=== PATIENT | female | born 1950 | race Caucasian/White ===

== ENCOUNTER 2017-08-19 11:53 | Inpatient (IN) | payer MEDICARE, MEDICAID ==
[~2017-08-19] VITALS: Ht 152.4 cm; Wt 59.6 kg
[~2017-08-19 11:53] MED LIST: CILOXAN; INSULIN; PREDNISOLONE; [UNRECOGNIZED DRUG - OTHER]
[2017-08-19] MEDS ORDERED: KETOROLAC 30MG/ML VIAL IV STA (12:20)
[2017-08-19] MEDS ORDERED: ACETAMINOPHEN 325MG TABLET PO STA (12:20)
[2017-08-19] MEDS ORDERED: MORPHINE SULFATE 4 MG/ML CPJ (NOT FOR IM USE) IV STA (12:20)
[2017-08-19] MEDS ORDERED: ONDANSETRON HCL 4MG/2ML VIAL IV STA (12:20)
[2017-08-19] MEDS ORDERED: SODIUM CHLORIDE 0.9% 1,000 ML IV ONE (12:20)
[2017-08-19] MEDS ORDERED: IPRATROPIUM/ALBUTEROL 0.5-3(2.5)MG/3ML NEB HHN ONE (12:30)
[2017-08-19] MEDS ORDERED: LEVOFLOXACIN 750MG PREMIX 150 ML IV ONE (12:30)
[2017-08-19] MEDS ORDERED: METHYLPREDNISOLONE SOD SUCC 125 MG/2 ML VIAL IV ONE (12:30)
[2017-08-19 13:15] LABS: BASOPHILS % 0.5 % (0.0-2.0); EOSINOPHILS % 0.1 % (0.0-5.0); HEMATOCRIT. 38.1 % (36.0-48.0); HEMOGLOBIN. 12.9 g/dL (12.0-16.0); LYMPHOCYTES % 8.9 % (20.0-50.0); MEAN CORPUSCULAR VOLUME 82.7 fL (81.0-99.0); MEAN PLATELET VOLUME 8.3 fl (7.4-10.4); MONOCYTES % 6.5 % (2.0-8.0); PLATELET 434 x1000/uL (130-400); RED CELL DISTRIBUTION WIDTH 14.6 % (11.6-14.6)
[2017-08-19 13:17] LABS: CHLORIDE 104 mEq/L (98-107)
[2017-08-19 13:37] LABS: PROTHROMBIN TIME 10.7 sec (9.4-11.6)
[2017-08-19 15:47] LABS: CLARITY URINE CLEAR (CLEAR); COLOR URINE YELLOW (YELLOW); KETONES URINE 3+ (NEGATIVE); LEUKOCYTE ESTERASE URINE NEGATIVE (NEGATIVE); NITRITE URINE NEGATIVE (NEGATIVE); OCCULT BLOOD URINE NEGATIVE (NEGATIVE); PH URINE 6.5 (4.5-8.0); PROTEIN URINE NEGATIVE (NEGATIVE); SPECIFIC GRAVITY URINE 1.017 (1.005-1.030); UROBILINOGEN URINE 0.2 E.U./dL (0.2-1.0)
[2017-08-19] MEDS ORDERED: MORPHINE SULFATE 4 MG/ML CPJ (NOT FOR IM USE) IV ONE (16:45)
[2017-08-19] MEDS ORDERED: ONDANSETRON HCL 4MG/2ML VIAL IV ONE (16:45)
[2017-08-19] MEDS ORDERED: BECL10.62 IH (19:48)
[2017-08-19] MEDS ORDERED: LANTUSUD SUBCUT ×2 (19:48)
[2017-08-19] MEDS ORDERED: ALBU18HF2 IH (19:48)
[2017-08-19 19:57] VITALS: BP 108/41
[2017-08-19 20:00] VITALS: BP 108/41
[2017-08-19] MEDS ORDERED: PNEUMOCOCCAL 23-VAL P-SAC VAC 0.5 ML IM ONE (20:30)
[2017-08-19] MEDS ORDERED: CLONIDINE 0.1MG TABLET PO PRN (20:45)
[2017-08-19] MEDS ORDERED: ONDANSETRON HCL 4MG/2ML VIAL IV PRN (20:45)
[2017-08-19] MEDS ORDERED: DEXTROSE 50% WATER 50ML SYRINGE IV PRN (21:00)
[2017-08-19] MEDS: BLOOD SUGAR DIAGNOSTIC STRIP TEST SCH (21:18)
[2017-08-19] MEDS: METHYLPREDNISOLONE SOD SUCC 125 MG/2 ML VIAL IV SCH (21:24)
[2017-08-19] MEDS: INSULIN LISPRO 100 UNITS/ML SUBCUT SCH (21:26)
[2017-08-19] MEDS ORDERED: CEFTRIAXONE 1 G PREMIX 50 ML IV SCH (22:00)
[2017-08-19] MEDS ORDERED: AZITHROMYCIN 500 MG in DEXT 5% WATER 250 ML IV SCH (23:00)
[2017-08-19 23:51] LABS: CREATINE KINASE 81 IU/L (26-192)
[2017-08-20] VITALS (7 sets, daily range): BP systolic 101–149; BP diastolic 47–61
[2017-08-20] MEDS: METHYLPREDNISOLONE SOD SUCC 125 MG/2 ML VIAL IV SCH (03:08)
[2017-08-20] MEDS: HYDROCODONE/ACETAMINOPHEN 5/325MG TABLET PO PRN ×3 (03:17→19:57)
[2017-08-20 07:35] LABS: BASOPHILS % 0.2 % (0.0-2.0); HEMATOCRIT. 35.2 % (36.0-48.0); HEMOGLOBIN. 11.3 g/dL (12.0-16.0); LYMPHOCYTES % 10.1 % (20.0-50.0); MEAN CORPUSCULAR VOLUME 83.9 fL (81.0-99.0); MEAN PLATELET VOLUME 8.8 fl (7.4-10.4); MONOCYTES % 3.3 % (2.0-8.0); NEUTROPHILS % 86.4 % (40.0-76.0); PLATELET 359 x1000/uL (130-400); RED BLOOD CELL COUNT 4.19 mill/uL (4.2-5.4); RED CELL DISTRIBUTION WIDTH 14.6 % (11.6-14.6)
[2017-08-20] MEDS: BLOOD SUGAR DIAGNOSTIC STRIP TEST SCH ×4 (07:40→20:56)
[2017-08-20 08:31] LABS: CHLORIDE 107 mEq/L (98-107)
[2017-08-20 08:49] LABS: LDL CHOLESTEROL 43 mg/dL (5-100)
[2017-08-20 08:51] LABS: CREATINE KINASE 80 IU/L (26-192); T4 FREE 1.61 ng/dL (0.76-1.46)
[2017-08-20 08:52] LABS: HDL CHOLESTEROL 34 mg/dL (40-59)
[2017-08-20] MEDS: ASPIRIN 81MG EC TABLET PO SCH (09:00)
[2017-08-20] MEDS: AMLODIPINE 10MG TABLET PO SCH (09:01)
[2017-08-20] MEDS: ENOXAPARIN 40MG/0.4ML SYR SUBCUT SCH (09:02)
[2017-08-20] MEDS: GUAIFENESIN 200MG/10ML SUGAR FREE UDC PO PRN ×2 (09:02→19:57)
[2017-08-20] MEDS: INSULIN LISPRO 100 UNITS/ML SUBCUT SCH ×4 (09:09→21:00)
[2017-08-20] MEDS: IPRATROPIUM/ALBUTEROL 0.5-3(2.5)MG/3ML NEB INH PRN ×3 (09:25→21:05)
[2017-08-20] MEDS: GUAIFENESIN 600MG ER TABLET PO SCH ×2 (12:52→20:51)
[2017-08-20] MEDS: MORPHINE SULFATE 4 MG/ML CPJ (NOT FOR IM USE) IV PRN ×2 (18:22→22:42)
[2017-08-20] MEDS ORDERED: CEFTRIAXONE 1 G PREMIX 50 ML IV SCH (20:00)
[2017-08-20] MEDS: METHYLPREDNISOLONE SOD SUCC 40 MG/ML VIAL IV SCH (20:51)
[2017-08-20] MEDS ORDERED: AZITHROMYCIN 500 MG in DEXT 5% WATER 250 ML IV SCH (21:00)
[2017-08-20] MEDS: BUDESONIDE 0.5MG/2ML NEB HHN SCH (21:06)
[2017-08-21] MEDS: MORPHINE SULFATE 4 MG/ML CPJ (NOT FOR IM USE) IV PRN ×4 (03:09→17:01)
[2017-08-21 04:00] VITALS: BP 145/71
[2017-08-21] MEDS: HYDROCODONE/ACETAMINOPHEN 5/325MG TABLET PO PRN ×4 (05:12→20:24)
[2017-08-21] MEDS: BLOOD SUGAR DIAGNOSTIC STRIP TEST SCH ×4 (07:40→20:41)
[2017-08-21 07:42] LABS: BASOPHILS % 0.1 % (0.0-2.0); HEMATOCRIT. 37.4 % (36.0-48.0); HEMOGLOBIN. 12.2 g/dL (12.0-16.0); LYMPHOCYTES % 7.7 % (20.0-50.0); MEAN CORPUSCULAR HEMOGLOBIN 27.5 pg (28.0-32.0); MEAN CORPUSCULAR VOLUME 84.4 fL (81.0-99.0); MEAN PLATELET VOLUME 8.5 fl (7.4-10.4); MONOCYTES % 7.5 % (2.0-8.0); NEUTROPHILS % 84.7 % (40.0-76.0); PLATELET 558 x1000/uL (130-400); RED BLOOD CELL COUNT 4.44 mill/uL (4.2-5.4); RED CELL DISTRIBUTION WIDTH 14.7 % (11.6-14.6)
[2017-08-21 07:49] LABS: CHLORIDE 105 mEq/L (98-107)
[2017-08-21 08:00] VITALS: BP 115/66
[2017-08-21] MEDS: IPRATROPIUM/ALBUTEROL 0.5-3(2.5)MG/3ML NEB INH PRN ×2 (08:09→22:02)
[2017-08-21] MEDS: BUDESONIDE 0.5MG/2ML NEB HHN SCH ×2 (08:09→22:00)
[2017-08-21] MEDS: ASPIRIN 81MG EC TABLET PO SCH (08:49)
[2017-08-21] MEDS: METHYLPREDNISOLONE SOD SUCC 40 MG/ML VIAL IV SCH ×2 (08:49→20:23)
[2017-08-21] MEDS: ENOXAPARIN 40MG/0.4ML SYR SUBCUT SCH (08:49)
[2017-08-21] MEDS: AMLODIPINE 10MG TABLET PO SCH (08:49)
[2017-08-21] MEDS: INSULIN LISPRO 100 UNITS/ML SUBCUT SCH ×4 (09:00→20:55)
[2017-08-21] MEDS: GUAIFENESIN 600MG ER TABLET PO SCH ×2 (09:10→20:23)
[2017-08-21] MEDS: ACETAMINOPHEN 325MG TABLET PO PRN ×2 (11:57→20:38)
[2017-08-21 12:02] VITALS: BP 105/58
[2017-08-21] MEDS ORDERED: INSULIN GLARGINE UD 100 UNITS/ML SYR SUBCUT SCH ×2 (13:00→22:00)
[2017-08-21] MEDS: PIPERACILLIN/TAZ 3.375G PREMIX 50 ML IV SCH ×2 (15:32→21:56)
[2017-08-21 15:57] VITALS: BP 114/58
[2017-08-21 20:00] VITALS: BP 131/57
[2017-08-21] MEDS: GUAIFENESIN/CODEINE 100-10MG/5ML UDC PO PRN (20:23)
[2017-08-21] MEDS: BENZONATATE 100MG CAPSULE PO PRN (20:38)
[2017-08-22] VITALS: BP 120/57
[2017-08-22 04:00] VITALS: BP 125/58
[2017-08-22] MEDS: BLOOD SUGAR DIAGNOSTIC STRIP TEST SCH ×4 (06:01→21:22)
[2017-08-22] MEDS: PIPERACILLIN/TAZ 3.375G PREMIX 50 ML IV SCH ×3 (06:27→21:23)
[2017-08-22 07:12] LABS: HEMATOCRIT 34.7 % (36.0-48.0); HEMOGLOBIN 10.9 g/dL (12.0-16.0); MEAN CORPUSCULAR HEMOGLOBIN 26.4 pg (28.0-32.0); MEAN CORPUSCULAR VOLUME 83.8 fL (81.0-99.0); PLATELET 430 x1000/uL (130-400); RED BLOOD CELL COUNT 4.14 mill/uL (4.2-5.4); RED CELL DISTRIBUTION WIDTH 14.8 % (11.6-14.6)
[2017-08-22 07:32] LABS: CHLORIDE 109 mEq/L (98-107)
[2017-08-22] MEDS: BUDESONIDE 0.5MG/2ML NEB HHN SCH ×2 (07:42→20:21)
[2017-08-22 08:00] VITALS: BP 131/68
[2017-08-22] MEDS: ASPIRIN 81MG EC TABLET PO SCH (09:42)
[2017-08-22] MEDS: GUAIFENESIN 600MG ER TABLET PO SCH ×2 (09:44→21:23)
[2017-08-22] MEDS: AMLODIPINE 10MG TABLET PO SCH (09:44)
[2017-08-22] MEDS: ENOXAPARIN 40MG/0.4ML SYR SUBCUT SCH (09:47)
[2017-08-22] MEDS: METHYLPREDNISOLONE SOD SUCC 40 MG/ML VIAL IV SCH ×2 (09:48→21:23)
[2017-08-22] MEDS: INSULIN LISPRO 100 UNITS/ML SUBCUT SCH ×4 (09:49→21:28)
[2017-08-22 12:00] VITALS: BP 118/50
[2017-08-22] MEDS: MORPHINE SULFATE 4 MG/ML CPJ (NOT FOR IM USE) IV PRN ×2 (13:48→18:33)
[2017-08-22] MEDS ORDERED: INSULIN GLARGINE UD 100 UNITS/ML SYR SUBCUT NR (14:15)
[2017-08-22] MEDS ORDERED: ENOXAPARIN 40MG/0.4ML SYR SUBCUT SCH (15:00)
[2017-08-22 16:00] VITALS: BP 129/62
[2017-08-22] MEDS ORDERED: VANCOMYCIN 1250MG in DEXTROSE 5% WATER 250ML IV NR (18:00)
[2017-08-22 20:00] VITALS: BP 122/53
[2017-08-22] MEDS: IPRATROPIUM/ALBUTEROL 0.5-3(2.5)MG/3ML NEB INH PRN (20:22)
[2017-08-22] MEDS ORDERED: SODIUM CHLORIDE 0.9% 1,000 ML IV SCH (20:45)
[2017-08-22] MEDS: INSULIN GLARGINE UD 100 UNITS/ML SYR SUBCUT SCH (21:24)
[2017-08-23] VITALS: BP 113/56
[2017-08-23] MEDS: GUAIFENESIN/CODEINE 100-10MG/5ML UDC PO PRN (02:28)
[2017-08-23] MEDS: MORPHINE SULFATE 4 MG/ML CPJ (NOT FOR IM USE) IV PRN ×2 (02:28→09:20)
[2017-08-23] MEDS: IPRATROPIUM/ALBUTEROL 0.5-3(2.5)MG/3ML NEB INH PRN ×2 (02:32→08:19)
[2017-08-23 04:00] VITALS: BP 110/54
[2017-08-23] MEDS: PIPERACILLIN/TAZ 3.375G PREMIX 50 ML IV SCH ×3 (05:33→21:29)
[2017-08-23] MEDS: BLOOD SUGAR DIAGNOSTIC STRIP TEST SCH ×4 (05:40→21:30)
[2017-08-23 07:35] LABS: HEMATOCRIT 32.5 % (36.0-48.0); HEMOGLOBIN 10.5 g/dL (12.0-16.0); MEAN CORPUSCULAR HEMOGLOBIN 26.8 pg (28.0-32.0); MEAN CORPUSCULAR VOLUME 83.2 fL (81.0-99.0); PLATELET 398 x1000/uL (130-400); RED CELL DISTRIBUTION WIDTH 14.9 % (11.6-14.6)
[2017-08-23 08:00] VITALS: BP 113/53
[2017-08-23] MEDS: BUDESONIDE 0.5MG/2ML NEB HHN SCH (08:19)
[2017-08-23 08:23] LABS: CHLORIDE 107 mEq/L (98-107)
[2017-08-23] MEDS: GUAIFENESIN 600MG ER TABLET PO SCH ×2 (09:18→21:29)
[2017-08-23] MEDS: ENOXAPARIN 40MG/0.4ML SYR SUBCUT SCH (09:18)
[2017-08-23] MEDS: METHYLPREDNISOLONE SOD SUCC 40 MG/ML VIAL IV SCH ×2 (09:19→21:29)
[2017-08-23] MEDS: AMLODIPINE 10MG TABLET PO SCH (09:19)
[2017-08-23] MEDS: INSULIN GLARGINE UD 100 UNITS/ML SYR SUBCUT SCH ×2 (09:21→21:33)
[2017-08-23] MEDS: INSULIN LISPRO 100 UNITS/ML SUBCUT SCH ×4 (09:21→21:32)
[2017-08-23 12:00] VITALS: BP 119/51
[2017-08-23] MEDS: VANCOMYCIN 1 G PREMIX 200 ML IV SCH (12:49)
[2017-08-23 16:00] VITALS: BP 115/56
[2017-08-23 20:00] VITALS: BP 109/49
[2017-08-24] VITALS: BP 116/45
[2017-08-24] MEDS: IPRATROPIUM/ALBUTEROL 0.5-3(2.5)MG/3ML NEB INH PRN (00:32)
[2017-08-24 04:00] VITALS: BP 114/50
[2017-08-24 04:23] LABS: CHLORIDE 111 mEq/L (98-107)
[2017-08-24 04:24] LABS: HEMATOCRIT. 33.6 % (36.0-48.0); MEAN CORPUSCULAR HEMOGLOBIN 26.9 pg (28.0-32.0); MEAN CORPUSCULAR VOLUME 82.3 fL (81.0-99.0); PLATELET 436 x1000/uL (130-400); RED BLOOD CELL COUNT 4.09 mill/uL (4.2-5.4); RED CELL DISTRIBUTION WIDTH 14.8 % (11.6-14.6)
[2017-08-24] MEDS: MORPHINE SULFATE 4 MG/ML CPJ (NOT FOR IM USE) IV PRN (04:28)
[2017-08-24] MEDS: PIPERACILLIN/TAZ 3.375G PREMIX 50 ML IV SCH ×3 (05:37→21:36)
[2017-08-24] MEDS: VANCOMYCIN 1 G PREMIX 200 ML IV SCH (05:37)
[2017-08-24] MEDS: BLOOD SUGAR DIAGNOSTIC STRIP TEST SCH ×4 (05:37→21:38)
[2017-08-24 08:00] VITALS: BP 115/50
[2017-08-24] MEDS: INSULIN LISPRO 100 UNITS/ML SUBCUT SCH ×4 (08:10→21:37)
[2017-08-24] MEDS: AMLODIPINE 10MG TABLET PO SCH (09:00)
[2017-08-24] MEDS: GUAIFENESIN 600MG ER TABLET PO SCH ×2 (09:03→21:36)
[2017-08-24] MEDS: DOCUSATE SODIUM 100MG CAPSULE PO PRN (09:03)
[2017-08-24] MEDS: ENOXAPARIN 40MG/0.4ML SYR SUBCUT SCH (09:04)
[2017-08-24] MEDS: METHYLPREDNISOLONE SOD SUCC 40 MG/ML VIAL IV SCH (09:10)
[2017-08-24] MEDS: INSULIN GLARGINE UD 100 UNITS/ML SYR SUBCUT SCH ×2 (10:06→21:38)
[2017-08-24] MEDS: VANCOMYCIN 750 MG PREMIX 150 ML IV SCH ×2 (11:17→19:42)
[2017-08-24] MEDS: ACETAMINOPHEN 325MG TABLET PO PRN (11:29)
[2017-08-24 12:00] VITALS: BP 116/50
[2017-08-24 16:00] VITALS: BP 100/80
[2017-08-24 19:54] VITALS: BP 127/62
[2017-08-25 00:06] VITALS: BP 120/47
[2017-08-25] MEDS: VANCOMYCIN 750 MG PREMIX 150 ML IV SCH ×3 (02:02→19:00)
[2017-08-25 04:00] VITALS: BP 121/64
[2017-08-25] MEDS: BLOOD SUGAR DIAGNOSTIC STRIP TEST SCH ×4 (05:31→21:20)
[2017-08-25] MEDS: PIPERACILLIN/TAZ 3.375G PREMIX 50 ML IV SCH ×3 (05:31→21:33)
[2017-08-25 06:56] LABS: HEMATOCRIT 35.4 % (36.0-48.0); HEMOGLOBIN 11.4 g/dL (12.0-16.0); MEAN CORPUSCULAR HEMOGLOBIN 26.6 pg (28.0-32.0); MEAN CORPUSCULAR VOLUME 82.4 fL (81.0-99.0); PLATELET 442 x1000/uL (130-400); RED BLOOD CELL COUNT 4.29 mill/uL (4.2-5.4); RED CELL DISTRIBUTION WIDTH 14.9 % (11.6-14.6)
[2017-08-25 07:27] LABS: CHLORIDE 108 mEq/L (98-107)
[2017-08-25 08:00] VITALS: BP 115/66
[2017-08-25] MEDS: INSULIN LISPRO 100 UNITS/ML SUBCUT SCH ×4 (08:10→21:34)
[2017-08-25] MEDS: AMLODIPINE 10MG TABLET PO SCH (08:48)
[2017-08-25] MEDS: GUAIFENESIN 600MG ER TABLET PO SCH ×2 (08:48→21:33)
[2017-08-25] MEDS: ENOXAPARIN 40MG/0.4ML SYR SUBCUT SCH (08:48)
[2017-08-25] MEDS: INSULIN GLARGINE UD 100 UNITS/ML SYR SUBCUT SCH ×2 (09:32→21:34)
[2017-08-25] MEDS: METHYLPREDNISOLONE SOD SUCC 40 MG/ML VIAL IV SCH (09:34)
[2017-08-25 12:00] VITALS: BP 118/62
[2017-08-25 14:32] LABS: PLATELET ESTIMATE SLIGHTLY INCREASED
[2017-08-25] MEDS: BENZONATATE 100MG CAPSULE PO PRN (14:35)
[2017-08-25 16:00] VITALS: BP 120/70
[2017-08-25 20:00] VITALS: BP 144/79
[2017-08-25] MEDS ORDERED: ACETAMINOPHEN 325MG TABLET PO PRN (20:30)
[2017-08-25] MEDS ORDERED: DOCUSATE SODIUM 100MG CAPSULE PO SCH (21:00)
[2017-08-26] VITALS (13 sets, daily range): BP systolic 114–132; BP diastolic 48–68
[2017-08-26] MEDS: VANCOMYCIN 750 MG PREMIX 150 ML IV SCH (03:30)
[2017-08-26] MEDS: PIPERACILLIN/TAZ 3.375G PREMIX 50 ML IV SCH ×4 (05:31→21:09)
[2017-08-26] MEDS: BLOOD SUGAR DIAGNOSTIC STRIP TEST SCH ×4 (05:32→21:09)
[2017-08-26 05:58] LABS: PROTHROMBIN TIME 10.5 sec (9.4-11.6)
[2017-08-26 06:06] LABS: BASOPHILS % 0.2 % (0.0-2.0); EOSINOPHILS % 0.7 % (0.0-5.0); HEMATOCRIT. 35.7 % (36.0-48.0); HEMOGLOBIN. 11.4 g/dL (12.0-16.0); LYMPHOCYTES % 20.7 % (20.0-50.0); MEAN CORPUSCULAR HEMOGLOBIN 26.7 pg (28.0-32.0); MEAN CORPUSCULAR VOLUME 83.5 fL (81.0-99.0); MEAN PLATELET VOLUME 8.3 fl (7.4-10.4); MONOCYTES % 6.5 % (2.0-8.0); NEUTROPHILS % 71.9 % (40.0-76.0); PLATELET 410 x1000/uL (130-400); RED BLOOD CELL COUNT 4.27 mill/uL (4.2-5.4); RED CELL DISTRIBUTION WIDTH 14.7 % (11.6-14.6)
[2017-08-26 06:41] LABS: CHLORIDE 112 mEq/L (98-107)
[2017-08-26] MEDS: INSULIN LISPRO 100 UNITS/ML SUBCUT SCH ×4 (08:06→21:11)
[2017-08-26] MEDS: AMLODIPINE 10MG TABLET PO SCH (09:00)
[2017-08-26] MEDS: ENOXAPARIN 40MG/0.4ML SYR SUBCUT SCH (09:00)
[2017-08-26] MEDS: GUAIFENESIN 600MG ER TABLET PO SCH ×2 (09:00→21:09)
[2017-08-26] MEDS: METHYLPREDNISOLONE SOD SUCC 40 MG/ML VIAL IV SCH (09:14)
[2017-08-26] MEDS: INSULIN GLARGINE UD 100 UNITS/ML SYR SUBCUT SCH (09:40)
[2017-08-26] MEDS ORDERED: BACITRACIN ZINC 15GM TUBE TOP ONE (09:49)
[2017-08-26] MEDS ORDERED: NORMAL SALINE 0.9% 10 ML SYR ONE ×3 (09:50→12:35)
[2017-08-26] MEDS ORDERED: BUPIVACAINE HCL/EPINEPHRINE/PF 0.5%/0.0005 10ML ONE (09:50)
[2017-08-26] MEDS ORDERED: SKIN ADHESIVE 0.7 GM EA TOP ONE (09:50)
[2017-08-26] MEDS ORDERED: SODIUM CHLORIDE 0.9% 1,000 ML ONE (09:50)
[2017-08-26] MEDS ORDERED: BACITRACIN 50,000 UNITS/VIAL ONE ×3 (09:50→12:36)
[2017-08-26] MEDS ORDERED: MIDAZOLAM HCL 5 MG/5 ML VIAL ONE (10:01)
[2017-08-26] MEDS ORDERED: EPHEDRINE SULFATE 50MG/ML VIAL ONE (10:09)
[2017-08-26] MEDS ORDERED: DEXAMETHASONE 4MG/ML 1ML VIAL ONE (10:10)
[2017-08-26] MEDS ORDERED: ETOMIDATE 2MG/ML 10ML VIAL IV ONE ×2 (10:10→10:11)
[2017-08-26] MEDS ORDERED: VASOPRESSIN 20 UNIT/ML 1ML ONE (10:10)
[2017-08-26] MEDS ORDERED: ONDANSETRON HCL 4MG/2ML VIAL ONE (10:11)
[2017-08-26] MEDS ORDERED: ALBUMIN HUMAN 12.5GM/50ML (25%) IV ONE (10:22)
[2017-08-26] MEDS ORDERED: TETRACAINE/BENZOCAINE/BUTAMBEN 20 GM SPRAY MM ONE (10:22)
[2017-08-26] MEDS ORDERED: ALBUTEROL 90MCG/PUFF 17GM INHALER INH ONE (12:12)
[2017-08-26] MEDS ORDERED: MORPHINE SULFATE 4 MG/ML CPJ (NOT FOR IM USE) IV PRN (13:45)
[2017-08-26] MEDS ORDERED: ONDANSETRON HCL 4MG/2ML VIAL IV PRN ×3 (13:45→15:30)
[2017-08-26] MEDS ORDERED: VANCOMYCIN 1 G PREMIX 200 ML IV SCH (14:00)
[2017-08-26] MEDS ORDERED: SODIUM CHLORIDE 0.9% 500 ML IV PRN (14:13)
[2017-08-26] MEDS ORDERED: MORPHINE SULFATE 2 MG/ML CPJ (NOT FOR IM USE) IV PRN (14:15)
[2017-08-26] MEDS ORDERED: ACETAMINOPHEN 325MG TABLET PO PRN (14:15)
[2017-08-26] MEDS ORDERED: OXYCODONE HCL/ACETAMINOPHEN 5/325MG TABLET PO PRN ×2 (14:15)
[2017-08-26 14:37] LABS: BG DEOXYHEMOGLOBIN 5.8 % (0.0-5.0); BG FRACTION INSPIRED OXYGEN 40; BG HCO3 ACT 16.8 mmol/L (22.0-26.0); BG METHEMOGLOBIN 0.5 % (0.0-1.5); BG OXYHEMOGLOBIN 92.7 % (94.0-97.0); BG PCO2 29.2 mmHg (35.0-45.0); BG PH 7.377 (7.350-7.450); BG SAMPLE SITE A-LINE; BG TIDAL VOLUME(mL) 450 mL; BG TOTAL HEMOGLOBIN 13.7 g/dL (12.0-18.0); BG VENT MODE VENT - A/C; BG VENT RATE 14 set
[2017-08-26] MEDS ORDERED: ALBUMIN HUMAN 12.5G/250ML (5%) IV NR (16:00)
[2017-08-26] MEDS ORDERED: SODIUM BICARBONATE 8.4% 1 MEQ/ML 50ML SYR IV NR (16:00)
[2017-08-26 16:32] LABS: CHLORIDE 110 mEq/L (98-107)
[2017-08-26 16:38] LABS: HEMATOCRIT. 37.3 % (36.0-48.0); HEMOGLOBIN. 12.1 g/dL (12.0-16.0); MEAN CORPUSCULAR HEMOGLOBIN 26.8 pg (28.0-32.0); MEAN CORPUSCULAR VOLUME 82.8 fL (81.0-99.0); MEAN PLATELET VOLUME 8.4 fl (7.4-10.4); PLATELET 633 x1000/uL (130-400); RED CELL DISTRIBUTION WIDTH 15.2 % (11.6-14.6)
[2017-08-26 17:17] LABS: PLATELET ESTIMATE INCREASED
[2017-08-26 17:25] LABS: BG BASE EXCESS -3.4 mmol/L (-2.0-2.0); BG CARBOXYHEMOGLOBIN 0.3 % (0.5-1.5); BG FRACTION INSPIRED OXYGEN 40; BG HCO3 ACT 19.8 mmol/L (22.0-26.0); BG METHEMOGLOBIN 0.3 % (0.0-1.5); BG OXYHEMOGLOBIN 96.4 % (94.0-97.0); BG PH 7.437 (7.350-7.450); BG PO2 93.1 mmHg (75.0-100.0); BG SAMPLE SITE A-LINE; BG TIDAL VOLUME(mL) 450 mL; BG TOTAL HEMOGLOBIN 12.3 g/dL (12.0-18.0); BG VENT MODE VENT - A/C; BG VENT RATE 14 set
[2017-08-26] MEDS: MAGNESIUM HYDROXIDE 400MG/5ML 30ML UDC PO SCH ×3 (17:29→23:49)
[2017-08-26] MEDS: VANCOMYCIN 1 G PREMIX 200 ML IV SCH (17:29)
[2017-08-26] MEDS: MORPHINE SULFATE 4 MG/ML CPJ (NOT FOR IM USE) IV PRN ×3 (17:55→23:50)
[2017-08-26] MEDS ORDERED: DEXT 5%/0.45% NACL 1000ML 1,000 ML IV SCH (18:30)
[2017-08-26] MEDS: IPRATROPIUM/ALBUTEROL 0.5-3(2.5)MG/3ML NEB HHN SCH (20:30)
[2017-08-26] MEDS: MAGNESIUM/ALUMINUM HYDROXIDE/SIMETHICONE 30ML UDC PO PRN (21:09)
[2017-08-26 21:43] LABS: BG BASE EXCESS 1.6 mmol/L (-2.0-2.0); BG CARBOXYHEMOGLOBIN 0.2 % (0.5-1.5); BG FRACTION INSPIRED OXYGEN 40; BG HCO3 ACT 24.3 mmol/L (22.0-26.0); BG METHEMOGLOBIN 0.2 % (0.0-1.5); BG OXYHEMOGLOBIN 97.6 % (94.0-97.0); BG PCO2 32.3 mmHg (35.0-45.0); BG PH 7.495 (7.350-7.450); BG PO2 106.3 mmHg (75.0-100.0); BG PRESSURE SUPPORT 8; BG SAMPLE SITE A-LINE; BG TIDAL VOLUME(mL) 450 mL; BG VENT MODE VENT - SIMV; BG VENT RATE 10 set
[2017-08-26 23:48] LABS: BG BASE EXCESS -0.6 mmol/L (-2.0-2.0); BG CARBOXYHEMOGLOBIN 0.3 % (0.5-1.5); BG DEOXYHEMOGLOBIN 1.9 % (0.0-5.0); BG FRACTION INSPIRED OXYGEN 30; BG HCO3 ACT 21.4 mmol/L (22.0-26.0); BG METHEMOGLOBIN 0.3 % (0.0-1.5); BG OXYGEN SATURATION 98.1 % (92.0-98.5); BG OXYHEMOGLOBIN 97.5 % (94.0-97.0); BG PCO2 27.5 mmHg (35.0-45.0); BG PH 7.509 (7.350-7.450); BG PO2 113.4 mmHg (75.0-100.0); BG PRESSURE SUPPORT 8; BG SAMPLE SITE A-LINE; BG TOTAL HEMOGLOBIN 11.5 g/dL (12.0-18.0); BG VENT MODE VENT - CPAP
[2017-08-27] VITALS (24 sets, daily range): BP systolic 100–141; BP diastolic 41–74
[2017-08-27] MEDS: IPRATROPIUM/ALBUTEROL 0.5-3(2.5)MG/3ML NEB HHN SCH ×6 (00:05→20:30)
[2017-08-27] MEDS: VANCOMYCIN 1 G PREMIX 200 ML IV SCH ×3 (01:46→17:34)
[2017-08-27] MEDS: MORPHINE SULFATE 4 MG/ML CPJ (NOT FOR IM USE) IV PRN ×6 (03:50→23:35)
[2017-08-27] MEDS: MAGNESIUM HYDROXIDE 400MG/5ML 30ML UDC PO SCH ×5 (04:00→21:12)
[2017-08-27 05:53] LABS: BG BASE EXCESS -2.4 mmol/L (-2.0-2.0); BG CARBOXYHEMOGLOBIN 0.3 % (0.5-1.5); BG DEOXYHEMOGLOBIN 3.9 % (0.0-5.0); BG FRACTION INSPIRED OXYGEN 28; BG HCO3 ACT 19.9 mmol/L (22.0-26.0); BG METHEMOGLOBIN 0.2 % (0.0-1.5); BG OXYGEN SATURATION 96.1 % (92.0-98.5); BG OXYHEMOGLOBIN 95.6 % (94.0-97.0); BG PCO2 26.6 mmHg (35.0-45.0); BG PH 7.491 (7.350-7.450); BG PO2 81.9 mmHg (75.0-100.0); BG SAMPLE SITE A-LINE; BG VENT MODE NASAL CANNULA
[2017-08-27 06:19] LABS: HEMATOCRIT 33.1 % (36.0-48.0); HEMOGLOBIN 10.6 g/dL (12.0-16.0); MEAN CORPUSCULAR HEMOGLOBIN 26.6 pg (28.0-32.0); MEAN CORPUSCULAR VOLUME 82.9 fL (81.0-99.0); PLATELET 374 x1000/uL (130-400); RED BLOOD CELL COUNT 3.99 mill/uL (4.2-5.4); RED CELL DISTRIBUTION WIDTH 15.3 % (11.6-14.6)
[2017-08-27 06:24] LABS: CHLORIDE 111 mEq/L (98-107)
[2017-08-27] MEDS: PIPERACILLIN/TAZ 3.375G PREMIX 50 ML IV SCH ×3 (06:36→21:12)
[2017-08-27] MEDS: METHYLPREDNISOLONE SOD SUCC 40 MG/ML VIAL IV SCH (08:28)
[2017-08-27] MEDS: GUAIFENESIN 600MG ER TABLET PO SCH ×2 (08:28→21:00)
[2017-08-27] MEDS: FAMOTIDINE 20MG TABLET PO SCH (08:28)
[2017-08-27] MEDS: INSULIN LISPRO 100 UNITS/ML SUBCUT SCH ×4 (08:31→21:24)
[2017-08-27] MEDS: BLOOD SUGAR DIAGNOSTIC STRIP TEST SCH ×4 (08:32→21:12)
[2017-08-27] MEDS ORDERED: FAMOTIDINE 20MG/2ML VIAL IV SCH (09:00)
[2017-08-27] MEDS: AMLODIPINE 10MG TABLET PO SCH (11:00)
[2017-08-27] MEDS ORDERED: INSULIN LISPRO 100 UNITS/ML SUBCUT SCH (13:30)
[2017-08-27] MEDS: DOCUSATE SODIUM 100MG CAPSULE PO PRN (13:33)
[2017-08-27] MEDS: ENOXAPARIN 40MG/0.4ML SYR SUBCUT SCH (16:18)
[2017-08-27] MEDS: GUAIFENESIN/DM 600MG/30MG ER TAB 12HR PO SCH (21:12)
[2017-08-28] VITALS (21 sets, daily range): BP systolic 101–127; BP diastolic 46–77
[2017-08-28] MEDS: IPRATROPIUM/ALBUTEROL 0.5-3(2.5)MG/3ML NEB HHN SCH ×5 (00:20→21:09)
[2017-08-28] MEDS: VANCOMYCIN 1 G PREMIX 200 ML IV SCH ×3 (01:32→18:21)
[2017-08-28] MEDS: MAGNESIUM HYDROXIDE 400MG/5ML 30ML UDC PO SCH ×5 (04:00→16:35)
[2017-08-28] MEDS: PIPERACILLIN/TAZ 3.375G PREMIX 50 ML IV SCH ×2 (05:46→13:00)
[2017-08-28 05:57] LABS: CHLORIDE 104 mEq/L (98-107)
[2017-08-28 05:58] LABS: BASOPHILS % 0.1 % (0.0-2.0); EOSINOPHILS % 0.7 % (0.0-5.0); LYMPHOCYTES % 20.1 % (20.0-50.0); MEAN CORPUSCULAR HEMOGLOBIN 26.7 pg (28.0-32.0); MEAN CORPUSCULAR VOLUME 82.5 fL (81.0-99.0); MEAN PLATELET VOLUME 8.3 fl (7.4-10.4); MONOCYTES % 8.1 % (2.0-8.0); PLATELET 305 x1000/uL (130-400); RED BLOOD CELL COUNT 3.78 mill/uL (4.2-5.4); RED CELL DISTRIBUTION WIDTH 15.3 % (11.6-14.6)
[2017-08-28] MEDS: MORPHINE SULFATE 4 MG/ML CPJ (NOT FOR IM USE) IV PRN ×4 (06:35→18:28)
[2017-08-28 06:58] LABS: HEMOGLOBIN. 10.1 g/dL (12.0-16.0)
[2017-08-28 06:59] LABS: HEMATOCRIT. 31.2 % (36.0-48.0)
[2017-08-28] MEDS: MAGNESIUM/ALUMINUM HYDROXIDE/SIMETHICONE 30ML UDC PO PRN (08:44)
[2017-08-28] MEDS: FAMOTIDINE 20MG TABLET PO SCH (08:45)
[2017-08-28] MEDS: GUAIFENESIN 600MG ER TABLET PO SCH (08:45)
[2017-08-28] MEDS: ENOXAPARIN 40MG/0.4ML SYR SUBCUT SCH (08:45)
[2017-08-28] MEDS: AMLODIPINE 10MG TABLET PO SCH (08:45)
[2017-08-28] MEDS: INSULIN LISPRO 100 UNITS/ML SUBCUT SCH ×4 (08:46→21:17)
[2017-08-28] MEDS: GUAIFENESIN/DM 600MG/30MG ER TAB 12HR PO SCH ×3 (09:00→21:16)
[2017-08-28] MEDS ORDERED: DIPHENHYDRAMINE 25MG CAPSULE PO PRN (10:30)
[2017-08-28] MEDS: BLOOD SUGAR DIAGNOSTIC STRIP TEST SCH ×3 (12:32→21:17)
[2017-08-28 13:37] LABS: BG BASE EXCESS 2.8 mmol/L (-2.0-2.0); BG CARBOXYHEMOGLOBIN 0.6 % (0.5-1.5); BG DEOXYHEMOGLOBIN 5.4 % (0.0-5.0); BG FRACTION INSPIRED OXYGEN 21; BG HCO3 ACT 24.7 mmol/L (22.0-26.0); BG METHEMOGLOBIN 0.1 % (0.0-1.5); BG OXYGEN SATURATION 94.6 % (92.0-98.5); BG OXYHEMOGLOBIN 93.9 % (94.0-97.0); BG PCO2 29.6 mmHg (35.0-45.0); BG PH 7.539 (7.350-7.450); BG PO2 66.2 mmHg (75.0-100.0); BG SAMPLE SITE RIGHT RADIAL; BG TOTAL HEMOGLOBIN 12.2 g/dL (12.0-18.0); BG VENT MODE ROOM AIR
[2017-08-28] MEDS ORDERED: INSULIN GLARGINE UD 100 UNITS/ML SYR SUBCUT SCH (14:00)
[2017-08-28] MEDS: INSULIN GLARGINE UD 100 UNITS/ML SYR SUBCUT SCH ×2 (14:26→22:12)
[2017-08-28] MEDS: DOCUSATE SODIUM 250MG CAPSULE PO SCH (16:35)
[2017-08-28] MEDS: DOCUSATE SODIUM 100MG CAPSULE PO SCH (17:15)
[2017-08-28] MEDS ORDERED: POLYETHYLENE GLYCOL 3350 (17GM) 1 DOSE PACK PO ONE (17:15)
[2017-08-28] MEDS ORDERED: LACTULOSE 20G/30ML UDC PO PRN (21:00)
[2017-08-28] MEDS ORDERED: FAMOTIDINE 20MG TABLET PO SCH (21:00)
[2017-08-29] VITALS (11 sets, daily range): BP systolic 100–127; BP diastolic 58–73
[2017-08-29] MEDS: IPRATROPIUM/ALBUTEROL 0.5-3(2.5)MG/3ML NEB HHN SCH ×5 (00:01→20:48)
[2017-08-29] MEDS: VANCOMYCIN 1 G PREMIX 200 ML IV SCH ×3 (02:08→17:31)
[2017-08-29] MEDS: MORPHINE SULFATE 4 MG/ML CPJ (NOT FOR IM USE) IV PRN ×5 (03:04→19:56)
[2017-08-29 06:33] LABS: BASOPHILS % 0.4 % (0.0-2.0); EOSINOPHILS % 1.7 % (0.0-5.0); HEMATOCRIT. 34.1 % (36.0-48.0); HEMOGLOBIN. 10.7 g/dL (12.0-16.0); MEAN CORPUSCULAR HEMOGLOBIN 25.9 pg (28.0-32.0); MEAN CORPUSCULAR VOLUME 82.9 fL (81.0-99.0); MEAN PLATELET VOLUME 8.5 fl (7.4-10.4); NEUTROPHILS % 71.9 % (40.0-76.0); PLATELET 387 x1000/uL (130-400); RED BLOOD CELL COUNT 4.12 mill/uL (4.2-5.4); RED CELL DISTRIBUTION WIDTH 14.8 % (11.6-14.6)
[2017-08-29] MEDS: BLOOD SUGAR DIAGNOSTIC STRIP TEST SCH ×4 (06:50→21:00)
[2017-08-29 07:28] LABS: CHLORIDE 103 mEq/L (98-107)
[2017-08-29] MEDS: DOCUSATE SODIUM 100MG CAPSULE PO SCH ×2 (08:17→17:00)
[2017-08-29] MEDS: DOCUSATE SODIUM 250MG CAPSULE PO SCH (08:17)
[2017-08-29] MEDS: GUAIFENESIN/DM 600MG/30MG ER TAB 12HR PO SCH ×2 (08:29→22:19)
[2017-08-29] MEDS: AMLODIPINE 10MG TABLET PO SCH (08:29)
[2017-08-29] MEDS: FAMOTIDINE 20MG TABLET PO SCH (08:29)
[2017-08-29] MEDS: ENOXAPARIN 40MG/0.4ML SYR SUBCUT SCH (08:30)
[2017-08-29] MEDS: INSULIN LISPRO 100 UNITS/ML SUBCUT SCH ×4 (08:31→22:20)
[2017-08-29] MEDS: INSULIN GLARGINE UD 100 UNITS/ML SYR SUBCUT SCH ×2 (08:32→22:20)
[2017-08-29] MEDS ORDERED: POLYETHYLENE GLYCOL 3350 (17GM) 1 DOSE PACK PO SCH (09:00)
[2017-08-29 15:06] LABS: BG BASE EXCESS 0.5 mmol/L (-2.0-2.0); BG CARBOXYHEMOGLOBIN 0.9 % (0.5-1.5); BG DEOXYHEMOGLOBIN 4.3 % (0.0-5.0); BG FRACTION INSPIRED OXYGEN 21; BG HCO3 ACT 22.8 mmol/L (22.0-26.0); BG METHEMOGLOBIN 0.2 % (0.0-1.5); BG OXYGEN SATURATION 95.7 % (92.0-98.5); BG OXYHEMOGLOBIN 94.6 % (94.0-97.0); BG PCO2 30.2 mmHg (35.0-45.0); BG PH 7.496 (7.350-7.450); BG PO2 73.8 mmHg (75.0-100.0); BG SAMPLE SITE LEFT RADIAL; BG VENT MODE ROOM AIR
[2017-08-29] MEDS: PIPERACILLIN/TAZ 3.375G PREMIX 50 ML IV SCH ×2 (17:31→23:23)
[2017-08-30] VITALS (12 sets, daily range): BP systolic 100–132; BP diastolic 42–85
[2017-08-30] MEDS: IPRATROPIUM/ALBUTEROL 0.5-3(2.5)MG/3ML NEB HHN SCH ×6 (00:54→20:41)
[2017-08-30] MEDS: VANCOMYCIN 1 G PREMIX 200 ML IV SCH (01:35)
[2017-08-30] MEDS: MORPHINE SULFATE 4 MG/ML CPJ (NOT FOR IM USE) IV PRN ×5 (03:14→23:53)
[2017-08-30] MEDS: PIPERACILLIN/TAZ 3.375G PREMIX 50 ML IV SCH ×4 (04:46→23:47)
[2017-08-30 06:49] LABS: BASOPHILS % 0.7 % (0.0-2.0); HEMATOCRIT. 29.6 % (36.0-48.0); HEMOGLOBIN. 9.7 g/dL (12.0-16.0); LYMPHOCYTES % 18.1 % (20.0-50.0); MEAN CORPUSCULAR HEMOGLOBIN 26.9 pg (28.0-32.0); MEAN PLATELET VOLUME 8.2 fl (7.4-10.4); MONOCYTES % 8.6 % (2.0-8.0); NEUTROPHILS % 71.6 % (40.0-76.0); PLATELET 234 x1000/uL (130-400); RED BLOOD CELL COUNT 3.61 mill/uL (4.2-5.4); RED CELL DISTRIBUTION WIDTH 15.1 % (11.6-14.6)
[2017-08-30] MEDS: BLOOD SUGAR DIAGNOSTIC STRIP TEST SCH ×4 (06:50→20:48)
[2017-08-30 07:16] LABS: CHLORIDE 105 mEq/L (98-107)
[2017-08-30] MEDS: INSULIN LISPRO 100 UNITS/ML SUBCUT SCH ×4 (08:07→21:48)
[2017-08-30] MEDS: INSULIN GLARGINE UD 100 UNITS/ML SYR SUBCUT SCH ×2 (08:07→21:47)
[2017-08-30] MEDS: GUAIFENESIN/DM 600MG/30MG ER TAB 12HR PO SCH ×2 (08:08→21:33)
[2017-08-30] MEDS: ENOXAPARIN 40MG/0.4ML SYR SUBCUT SCH (08:08)
[2017-08-30] MEDS: DOCUSATE SODIUM 100MG CAPSULE PO SCH ×2 (08:09→16:50)
[2017-08-30] MEDS: AMLODIPINE 10MG TABLET PO SCH (08:09)
[2017-08-30] MEDS: FAMOTIDINE 20MG TABLET PO SCH (08:10)
[2017-08-30] MEDS: VANCOMYCIN 750 MG PREMIX 150 ML IV SCH (17:32)
[2017-08-31] VITALS (12 sets, daily range): BP systolic 94–126; BP diastolic 46–76
[2017-08-31] MEDS: IPRATROPIUM/ALBUTEROL 0.5-3(2.5)MG/3ML NEB HHN SCH ×6 (01:10→20:55)
[2017-08-31] MEDS: VANCOMYCIN 750 MG PREMIX 150 ML IV SCH ×3 (02:42→17:41)
[2017-08-31] MEDS: MORPHINE SULFATE 4 MG/ML CPJ (NOT FOR IM USE) IV PRN ×5 (02:50→15:17)
[2017-08-31] MEDS: PIPERACILLIN/TAZ 3.375G PREMIX 50 ML IV SCH ×4 (05:22→23:39)
[2017-08-31 07:36] LABS: BASOPHILS % 0.4 % (0.0-2.0); EOSINOPHILS % 1.4 % (0.0-5.0); HEMATOCRIT. 30.2 % (36.0-48.0); HEMOGLOBIN. 9.9 g/dL (12.0-16.0); LYMPHOCYTES % 22.9 % (20.0-50.0); MEAN CORPUSCULAR VOLUME 82.6 fL (81.0-99.0); MEAN PLATELET VOLUME 8.4 fl (7.4-10.4); MONOCYTES % 8.2 % (2.0-8.0); NEUTROPHILS % 67.1 % (40.0-76.0); PLATELET 247 x1000/uL (130-400); RED BLOOD CELL COUNT 3.66 mill/uL (4.2-5.4); RED CELL DISTRIBUTION WIDTH 14.9 % (11.6-14.6)
[2017-08-31] MEDS: BLOOD SUGAR DIAGNOSTIC STRIP TEST SCH ×4 (07:39→21:29)
[2017-08-31] MEDS: FAMOTIDINE 20MG TABLET PO SCH (08:07)
[2017-08-31] MEDS: INSULIN LISPRO 100 UNITS/ML SUBCUT SCH ×4 (08:07→21:36)
[2017-08-31] MEDS: ENOXAPARIN 40MG/0.4ML SYR SUBCUT SCH (08:07)
[2017-08-31] MEDS: DOCUSATE SODIUM 100MG CAPSULE PO SCH ×2 (08:07→17:02)
[2017-08-31] MEDS: AMLODIPINE 10MG TABLET PO SCH (08:11)
[2017-08-31] MEDS: GUAIFENESIN/DM 600MG/30MG ER TAB 12HR PO SCH ×2 (08:12→21:35)
[2017-08-31 08:18] LABS: CHLORIDE 106 mEq/L (98-107)
[2017-08-31 08:54] LABS: BASOPHILS % 0.4 % (0.0-2.0); EOSINOPHILS % 1.1 % (0.0-5.0); HEMATOCRIT. 31.3 % (36.0-48.0); HEMOGLOBIN. 10.1 g/dL (12.0-16.0); LYMPHOCYTES % 23.6 % (20.0-50.0); MEAN CORPUSCULAR HEMOGLOBIN 26.6 pg (28.0-32.0); MEAN CORPUSCULAR VOLUME 82.4 fL (81.0-99.0); MEAN PLATELET VOLUME 8.4 fl (7.4-10.4); MONOCYTES % 7.4 % (2.0-8.0); NEUTROPHILS % 67.5 % (40.0-76.0); PLATELET 263 x1000/uL (130-400); RED CELL DISTRIBUTION WIDTH 15.4 % (11.6-14.6)
[2017-08-31] MEDS: INSULIN GLARGINE UD 100 UNITS/ML SYR SUBCUT SCH ×2 (11:06→21:36)
[2017-08-31] MEDS ORDERED: INSULIN LISPRO 100 UNITS/ML SUBCUT NR (12:00)
[2017-08-31] MEDS ORDERED: CEFTRIAXONE 1 G PREMIX 50 ML IV SCH (16:00)
[2017-08-31] MEDS: OXYCODONE HCL/ACETAMINOPHEN 5/325MG TABLET PO PRN (17:48)
[2017-09-01] VITALS (12 sets, daily range): BP systolic 103–130; BP diastolic 48–68
[2017-09-01] MEDS: IPRATROPIUM/ALBUTEROL 0.5-3(2.5)MG/3ML NEB HHN SCH ×5 (00:50→15:55)
[2017-09-01] MEDS: OXYCODONE HCL/ACETAMINOPHEN 5/325MG TABLET PO PRN ×3 (01:06→11:30)
[2017-09-01] MEDS: VANCOMYCIN 750 MG PREMIX 150 ML IV SCH ×2 (01:32→09:29)
[2017-09-01] MEDS: PIPERACILLIN/TAZ 3.375G PREMIX 50 ML IV SCH ×3 (05:43→17:01)
[2017-09-01] MEDS: BLOOD SUGAR DIAGNOSTIC STRIP TEST SCH ×4 (06:55→20:54)
[2017-09-01] MEDS: INSULIN LISPRO 100 UNITS/ML SUBCUT SCH ×4 (06:55→20:53)
[2017-09-01 07:16] LABS: BASOPHILS % 0.2 % (0.0-2.0); EOSINOPHILS % 1.4 % (0.0-5.0); HEMATOCRIT. 30.2 % (36.0-48.0); HEMOGLOBIN. 9.9 g/dL (12.0-16.0); LYMPHOCYTES % 27.7 % (20.0-50.0); MEAN CORPUSCULAR HEMOGLOBIN 26.8 pg (28.0-32.0); MEAN PLATELET VOLUME 8.3 fl (7.4-10.4); MONOCYTES % 8.4 % (2.0-8.0); NEUTROPHILS % 62.3 % (40.0-76.0); PLATELET 258 x1000/uL (130-400); RED BLOOD CELL COUNT 3.68 mill/uL (4.2-5.4); RED CELL DISTRIBUTION WIDTH 15.1 % (11.6-14.6)
[2017-09-01] MEDS: DOCUSATE SODIUM 100MG CAPSULE PO SCH ×2 (08:17→16:23)
[2017-09-01] MEDS: ENOXAPARIN 40MG/0.4ML SYR SUBCUT SCH (08:17)
[2017-09-01] MEDS: GUAIFENESIN/DM 600MG/30MG ER TAB 12HR PO SCH ×2 (08:17→20:52)
[2017-09-01] MEDS: AMLODIPINE 10MG TABLET PO SCH (08:17)
[2017-09-01] MEDS: FAMOTIDINE 20MG TABLET PO SCH (08:17)
[2017-09-01] MEDS: INSULIN GLARGINE UD 100 UNITS/ML SYR SUBCUT SCH ×2 (09:31→20:54)
[2017-09-01] MEDS: MORPHINE SULFATE 4 MG/ML CPJ (NOT FOR IM USE) IV PRN ×3 (13:37→22:03)
[2017-09-01] MEDS: VANCOMYCIN 1 G PREMIX 200 ML IV SCH (18:20)
[2017-09-02] VITALS (8 sets, daily range): BP systolic 106–119; BP diastolic 52–70
[2017-09-02] MEDS: PIPERACILLIN/TAZ 3.375G PREMIX 50 ML IV SCH ×3 (00:04→11:59)
[2017-09-02] MEDS: OXYCODONE HCL/ACETAMINOPHEN 5/325MG TABLET PO PRN ×2 (00:05→06:50)
[2017-09-02] MEDS: IPRATROPIUM/ALBUTEROL 0.5-3(2.5)MG/3ML NEB HHN SCH ×4 (00:55→11:06)
[2017-09-02] MEDS: MORPHINE SULFATE 4 MG/ML CPJ (NOT FOR IM USE) IV PRN (03:09)
[2017-09-02] MEDS: VANCOMYCIN 1 G PREMIX 200 ML IV SCH (06:07)
[2017-09-02] MEDS: BLOOD SUGAR DIAGNOSTIC STRIP TEST SCH ×2 (06:29→11:53)
[2017-09-02 06:52] LABS: HEMATOCRIT. 29.7 % (36.0-48.0); HEMOGLOBIN. 9.7 g/dL (12.0-16.0); MEAN CORPUSCULAR HEMOGLOBIN 26.8 pg (28.0-32.0); MEAN CORPUSCULAR VOLUME 82.4 fL (81.0-99.0); PLATELET 245 x1000/uL (130-400); RED CELL DISTRIBUTION WIDTH 15.4 % (11.6-14.6)
[2017-09-02] MEDS: INSULIN LISPRO 100 UNITS/ML SUBCUT SCH ×2 (07:03→12:00)
[2017-09-02 07:40] LABS: CHLORIDE 108 mEq/L (98-107)
[2017-09-02] MEDS: GUAIFENESIN/DM 600MG/30MG ER TAB 12HR PO SCH (08:48)
[2017-09-02] MEDS: FAMOTIDINE 20MG TABLET PO SCH (08:49)
[2017-09-02] MEDS: AMLODIPINE 10MG TABLET PO SCH (08:49)
[2017-09-02] MEDS: DOCUSATE SODIUM 100MG CAPSULE PO SCH (08:50)
[2017-09-02] MEDS: ENOXAPARIN 40MG/0.4ML SYR SUBCUT SCH (08:51)
[2017-09-02] MEDS: INSULIN GLARGINE UD 100 UNITS/ML SYR SUBCUT SCH (10:12)
[2017-09-02 19:45] LABS: PLATELET ESTIMATE NORMAL
== END 2017-09-02 13:45 | disposition home or self-care (01) | DRG 853 ==
LOC: ER 11:53 → 7WST 16:19 → ENRESERV 16:28 → CVICU 08-26 15:25 → 3WST 08-28 15:50
PROVIDERS: ADMIT Internal Medicine; ATTEND Internal Medicine
PROC: 0BNL0ZZ Release Left Lung, Open Approach (ICD-10-PCS; 2017-08-26)
PROC: 0BQB0ZZ Repair Left Lower Lobe Bronchus, Open Approach (ICD-10-PCS; 2017-08-26)
PROC: 5A1935Z Respiratory Ventilation, Less than 24 Consecutive Hours (ICD-10-PCS; 2017-08-26)
PROC: 0W9B30Z Drainage of Left Pleural Cavity with Drainage Device, Percutaneous Approach (ICD-10-PCS; 2017-08-26)
PROC: 0W9930Z Drainage of Right Pleural Cavity with Drainage Device, Percutaneous Approach (ICD-10-PCS; 2017-08-26)
PROC: 0BJ08ZZ Inspection of Tracheobronchial Tree, Via Natural or Artificial Opening Endoscopic (ICD-10-PCS; principal; 2017-08-26 10:00)
PROC: 02HV33Z Insertion of Infusion Device into Superior Vena Cava, Percutaneous Approach (ICD-10-PCS; 2017-08-28)
PROC: B548ZZA Ultrasonography of Superior Vena Cava, Guidance (ICD-10-PCS; 2017-08-28)
DX: A41.9 Sepsis, unspecified organism (principal); J96.00 Acute respiratory failure, unspecified whether with hypoxia or hypercapnia; J86.0 Pyothorax with fistula; J85.1 Abscess of lung with pneumonia; J18.1 Lobar pneumonia, unspecified organism; D64.9 Anemia, unspecified; I10 Essential (primary) hypertension; J45.909 Unspecified asthma, uncomplicated; R79.89 Other specified abnormal findings of blood chemistry; E11.65 Type 2 diabetes mellitus with hyperglycemia; T38.0X5A Adverse effect of glucocorticoids and synthetic analogues, initial encounter; Z85.828 Personal history of other malignant neoplasm of skin; Z80.9 Family history of malignant neoplasm, unspecified; Z90.49 Acquired absence of other specified parts of digestive tract; Y92.89 Other specified places as the place of occurrence of the external cause
CPT/HCPCS: 31500; 36415; 36569; 36600; 71045; 71250; 74018; 76937; 80048; 80053; 80061; 80202; 81003; 82375; 82550; 82805; 82945; 82962; 83036; 83605; 83615; 83735; 83880; 84157; 84439; 84443; 84484; 85007; 85025; 85027; 85379; 85610; 86850; 86900; 86920; 87040; 87070; 87075; 87077; 87086; 87116; 87186; 87205; 87804; 88108; 88305; 88312; 89050; 93005; 93970; 94002; 94640; 96365; 96366; 96375; 96376; 97110; 97116; 97163; 97530; 99285; A4216; A7042; C1725; C1893; J0171; J0456; J0696; J1100; J1650; J1815; J1885; J1956; J2250; J2270; J2405; J2543; J2920; J2930; J3370; J3490; J7030; J7050; J7060; J7620; J7626; P9041; P9047

== ENCOUNTER 2023-07-31 21:23 | Inpatient (IN) | payer MEDICARE, MEDICAID ==
[~2023-07-31] VITALS: Ht 165.1 cm; Wt 63.5 kg
[~2023-07-31 21:23] MED LIST changes: +ALBU18HF2 IH; +BECL10.62 IH; -CILOXAN; -INSULIN; +LANTUSUD SUBCUT; -PREDNISOLONE; -[UNRECOGNIZED DRUG - OTHER]
[2023-07-31] MEDS: IPRATROPIUM BROMIDE (0.02%) 0.5MG/2.5ML NEB HHN STA (21:26)
[2023-07-31] MEDS: ALBUTEROL (0.083%) 2.5MG/3ML NEB HHN SCH (21:30)
[2023-07-31 21:45] VITALS: PULSE 132; RESP 21
[2023-07-31] MEDS: PROPOFOL 10MG/ML 100ML 100 ML IV ONE (21:58)
[2023-07-31] MEDS ORDERED: FENTANYL 2500MCG/250ML PMX 250 ML IV ONE (22:00)
[2023-07-31] MEDS: SUCCINYLCHOLINE CHLORIDE 200MG/10ML IV ONE (22:01)
[2023-07-31] MEDS: ETOMIDATE 2MG/ML 10ML VIAL IV ONE (22:01)
[2023-07-31] MEDS: SODIUM CHLORIDE 0.9% 1,000 ML IV ONE ×2 (22:01→23:46)
[2023-07-31] MEDS: MAGNESIUM 2 G PREMIX 50 ML IV ONE (22:01)
[2023-07-31] MEDS: PROPOFOL 10MG/ML 100ML 100 ML IV PRN (22:02)
[2023-07-31] MEDS: METHYLPREDNISOLONE SOD SUCC 125MG/2ML (ACT-O-VIAL) IV STA (22:06)
[2023-07-31 22:11] LABS: BASOPHILS % 0.5 % (0.0-2.0); EOSINOPHILS % 2.1 % (0.0-5.0); HEMATOCRIT. 39.8 % (36.0-48.0); HEMOGLOBIN. 12.6 g/dL (12.0-16.0); LYMPHOCYTES % 47.3 % (20.0-50.0); MEAN CORPUSCULAR HEMOGLOBIN 26.3 pg (28.0-32.0); MEAN CORPUSCULAR HGB CONC 31.8 g/dL (31.0-37.0); MEAN CORPUSCULAR VOLUME 82.9 fL (81.0-99.0); MEAN PLATELET VOLUME 10.1 fl (7.4-10.4); MONOCYTES % 6.5 % (2.0-8.0); NEUTROPHILS % 43.6 % (40.0-76.0); PLATELET 276 x1000/uL (130-400); RED CELL DISTRIBUTION WIDTH 16.9 % (11.6-14.6); WHITE BLOOD COUNT 20.4 x1000/uL (4.5-11.0)
[2023-07-31] MEDS: FENTANYL 2500MCG/250ML PMX 250 ML IV NR (22:51)
[2023-07-31 22:52] LABS: BG BASE EXCESS -8.5 mmol/L (-2.0-2.0); BG CARBOXYHEMOGLOBIN 0.2 % (0.5-1.5); BG DEOXYHEMOGLOBIN 0.3 % (0.0-5.0); BG FRACTION INSPIRED OXYGEN 100; BG HCO3 ACT 19.6 mmol/L (22.0-26.0); BG METHEMOGLOBIN 0.3 % (0.0-1.5); BG OXYGEN SATURATION 99.7 % (92.0-98.5); BG OXYHEMOGLOBIN 99.2 % (94.0-97.0); BG PCO2 51.5 mmHg (35.0-45.0); BG PH 7.199 (7.350-7.450); BG SAMPLE SITE RIGHT RADIAL; BG VENT MODE VENT - AC
[2023-07-31 23:01] LABS: LACTIC ACID 3.6 mmol/L (0.4-2.0)
[2023-07-31 23:03] LABS: ALANINE AMINOTRANSFERASE 32 IU/L (10-49); ALBUMIN 4.5 g/dL (3.2-4.8); ASPARTATE AMINOTRANSFERASE 51 IU/L (<34); BILIRUBIN TOTAL 0.3 mg/dL (0.1-1.0); CALCIUM 8.5 mg/dL (8.7-10.4); CARBON DIOXIDE 18 mEq/L (21-32); CHLORIDE 103 mEq/L (98-107); CREATININE 1.1 mg/dL (0.6-1.0); GLUCOSE 295 mg/dL (70-105); POTASSIUM 4.9 mEq/L (3.5-5.1); PROTEIN TOTAL 7.4 g/dL (6.0-8.3); SODIUM 133 mEq/L (136-145); TROPONIN I HIGH SENSITIVITY 23 ng/L (3.0-34); UREA NITROGEN BLOOD 16 mg/dL (9-23)
[2023-07-31] MEDS ORDERED: LEVETIRACETAM 500 MG in SODIUM CHLORIDE 0.9% 100 ML IV SCH (23:15)
[2023-07-31 23:44] LABS: INR 0.9; PARTIAL THROMBOPLASTIN TIME 25.8 sec (23.4-31.0); PROTHROMBIN TIME 10.6 sec (9.6-11.0)
[2023-07-31 23:45] VITALS: PULSE 98; RESP 24
[2023-07-31] MEDS: LEVETIRACETAM 500MG PREMIX 100 ML IV SCH (23:46)
[2023-08-01] VITALS (10 sets, daily range): PULSE 54–75; RESP 24–28
[2023-08-01] MEDS: NOREPINEPHRINE 8MG/250ML PMX 250 ML IV ONE (00:27)
[2023-08-01] MEDS: PIPERACILLIN/TAZO 3.375G/50ML 50 ML IV SCH ×2 (06:03→22:30)
[2023-08-01] MEDS: IOHEXOL-350 100 ML BOTTLE ONE (06:19)
[2023-08-01] MEDS ORDERED: IPRATROPIUM/ALBUTEROL 0.5-3(2.5)MG/3ML NEB HHN PRN (15:00)
[2023-08-01] MEDS ORDERED: ACETAMINOPHEN 325MG TABLET PO PRN (15:00)
[2023-08-01] MEDS ORDERED: ONDANSETRON HCL 4MG/2ML INJ IV PRN (15:00)
[2023-08-01] MEDS ORDERED: NALOXONE HCL 0.4MG/ML VIAL IV PRN (15:15)
[2023-08-01 15:20] LABS: BG BASE EXCESS -8.3 mmol/L (-2.0-2.0); BG CARBOXYHEMOGLOBIN 0.2 % (0.5-1.5); BG DEOXYHEMOGLOBIN 1.7 % (0.0-5.0); BG FRACTION INSPIRED OXYGEN 50; BG HCO3 ACT 17.5 mmol/L (22.0-26.0); BG METHEMOGLOBIN 0.3 % (0.0-1.5); BG OXYGEN SATURATION 98.3 % (92.0-98.5); BG OXYHEMOGLOBIN 97.8 % (94.0-97.0); BG PCO2 37.2 mmHg (35.0-45.0); BG PH 7.291 (7.350-7.450); BG PO2 167.3 mmHg (75.0-100.0); BG SAMPLE SITE LEFT BRACHIAL; BG TOTAL HEMOGLOBIN 11.3 g/dL (12.0-18.0); BG VENT MODE VENT - AC
[2023-08-01] MEDS: ENOXAPARIN 40MG/0.4ML SYR SUBCUT SCH (17:28)
[2023-08-01] MEDS: VANCOMYCIN 1G PREMIX 200 ML IV NR (17:29)
[2023-08-01 21:18] LABS: BASOPHILS % 0.1 % (0.0-2.0); EOSINOPHILS % 0.1 % (0.0-5.0); HEMATOCRIT. 34.5 % (36.0-48.0); MEAN CORPUSCULAR HEMOGLOBIN 26.2 pg (28.0-32.0); MEAN CORPUSCULAR HGB CONC 31.8 g/dL (31.0-37.0); MEAN CORPUSCULAR VOLUME 82.1 fL (81.0-99.0); MEAN PLATELET VOLUME 9.8 fl (7.4-10.4); MONOCYTES % 7.8 % (2.0-8.0); PLATELET 151 x1000/uL (130-400); RED CELL DISTRIBUTION WIDTH 17.4 % (11.6-14.6); WHITE BLOOD COUNT 11.4 x1000/uL (4.5-11.0)
[2023-08-01 21:32] LABS: ALANINE AMINOTRANSFERASE 26 IU/L (10-49); ALBUMIN 3.8 g/dL (3.2-4.8); ASPARTATE AMINOTRANSFERASE 36 IU/L (<34); BILIRUBIN TOTAL 0.3 mg/dL (0.1-1.0); CALCIUM 7.3 mg/dL (8.7-10.4); CARBON DIOXIDE 20 mEq/L (21-32); CHLORIDE 113 mEq/L (98-107); CREATININE 0.7 mg/dL (0.6-1.0); GLUCOSE 231 mg/dL (70-105); POTASSIUM 4.2 mEq/L (3.5-5.1); PROTEIN TOTAL 6.5 g/dL (6.0-8.3); SODIUM 139 mEq/L (136-145); UREA NITROGEN BLOOD 19 mg/dL (9-23)
[2023-08-01 23:43] LABS: CREATINE KINASE MB FRACTION 14.6 ng/mL (0.5-3.6)
[2023-08-02] VITALS (85 sets, daily range): BP systolic 97–183; BP diastolic 49–111; PULSE 60–115; RESP 16–34; TEMP 96.2–97.9
[2023-08-02] MEDS: PROPOFOL 10MG/ML 100ML 100 ML IV SCH (05:36)
[2023-08-02 05:47] LABS: CREATINE KINASE MB FRACTION 15.6 ng/mL (0.5-3.6)
[2023-08-02 07:03] LABS: BASOPHILS % 0.2 % (0.0-2.0); EOSINOPHILS % 0.1 % (0.0-5.0); HEMATOCRIT. 35.6 % (36.0-48.0); HEMOGLOBIN. 11.3 g/dL (12.0-16.0); LYMPHOCYTES % 21.1 % (20.0-50.0); MEAN CORPUSCULAR HEMOGLOBIN 26.1 pg (28.0-32.0); MEAN CORPUSCULAR HGB CONC 31.7 g/dL (31.0-37.0); MEAN CORPUSCULAR VOLUME 82.3 fL (81.0-99.0); MEAN PLATELET VOLUME 10.2 fl (7.4-10.4); MONOCYTES % 9.5 % (2.0-8.0); NEUTROPHILS % 69.1 % (40.0-76.0); PLATELET 160 x1000/uL (130-400); RED BLOOD CELL COUNT 4.33 mill/uL (4.2-5.4); RED CELL DISTRIBUTION WIDTH 17.3 % (11.6-14.6); WHITE BLOOD COUNT 12.9 x1000/uL (4.5-11.0)
[2023-08-02 07:18] LABS: CALCIUM 7.2 mg/dL (8.7-10.4); CARBON DIOXIDE 21 mEq/L (21-32); CHLORIDE 112 mEq/L (98-107); CREATININE 0.9 mg/dL (0.6-1.0); GLUCOSE 177 mg/dL (70-105); PHOSPHORUS 2.9 mg/dL (2.5-4.9); POTASSIUM 4.5 mEq/L (3.5-5.1); SODIUM 142 mEq/L (136-145); UREA NITROGEN BLOOD 19 mg/dL (9-23)
[2023-08-02 10:18] LABS: BG BASE EXCESS -6.8 mmol/L (-2.0-2.0); BG CARBOXYHEMOGLOBIN 0.3 % (0.5-1.5); BG DEOXYHEMOGLOBIN 5.2 % (0.0-5.0); BG FRACTION INSPIRED OXYGEN 50; BG HCO3 ACT 20.1 mmol/L (22.0-26.0); BG METHEMOGLOBIN 0.3 % (0.0-1.5); BG OXYGEN SATURATION 94.8 % (92.0-98.5); BG OXYHEMOGLOBIN 94.2 % (94.0-97.0); BG PCO2 45.6 mmHg (35.0-45.0); BG PH 7.263 (7.350-7.450); BG PO2 80.8 mmHg (75.0-100.0); BG SAMPLE SITE RIGHT RADIAL; BG TOTAL HEMOGLOBIN 13.7 g/dL (12.0-18.0); BG VENT MODE VENT - AC
[2023-08-02] MEDS ORDERED: PROPOFOL 10MG/ML 100ML 100 ML IV PRN (10:30)
[2023-08-02] MEDS ORDERED: MORPHINE SULFATE 2 MG/ML CPJ (NOT FOR IM USE) IV PRN (10:30)
[2023-08-02] MEDS ORDERED: METHYLPREDNISOLONE SOD SUCC 40MG VIAL IV SCH (10:30)
[2023-08-02] MEDS ORDERED: NALOXONE HCL 0.4MG/ML VIAL IV PRN (11:15)
[2023-08-02] MEDS: METHYLPREDNISOLONE SOD SUCC 40MG/ML (ACT-O-VIAL) IV SCH (11:49)
[2023-08-02] MEDS: VANCOMYCIN 750MG/150ML IV SCH (11:52)
[2023-08-02] MEDS ORDERED: MIDAZOLAM HCL 2 MG/2 ML VIAL IV PRN (12:15)
[2023-08-02] MEDS: IPRATROPIUM/ALBUTEROL 0.5-3(2.5)MG/3ML NEB HHN SCH (12:54)
[2023-08-02] MEDS: BUDESONIDE 0.5MG/2ML NEB HHN SCH (12:55)
[2023-08-02] MEDS: MORPHINE SULFATE 2 MG/ML CPJ (NOT FOR IM USE) IV PRN (13:24)
[2023-08-02] MEDS ORDERED: ASPIRIN 81MG TABLET PO SCH (16:00)
[2023-08-02] MEDS ORDERED: VANCOMYCIN 1GM/200ML PMX (BAXTER) IV SCH (16:00)
[2023-08-02] MEDS: PANTOPRAZOLE SODIUM 40 MG/VIAL IV SCH (16:58)
[2023-08-02] MEDS ORDERED: LEVETIRACETAM 500 MG in SODIUM CHLORIDE 0.9% 100 ML IV SCH (17:00)
[2023-08-02] MEDS ORDERED: LEVETIRACETAM 500MG PREMIX 100 ML IV SCH (17:00)
[2023-08-02 21:09] LABS: TROPONIN I HIGH SENSITIVITY 513 ng/L (3.0-34)
[2023-08-02] MEDS: ATORVASTATIN CALCIUM 20MG TABLET PO SCH (21:30)
[2023-08-02 23:27] LABS: TROPONIN I HIGH SENSITIVITY 401 ng/L (3.0-34)
[2023-08-03] VITALS (69 sets, daily range): BP systolic 99–196; BP diastolic 49–87; PULSE 64–125; RESP 13–27; TEMP 96.3–98.8; O2SAT 94–97
[2023-08-03 05:20] LABS: BASOPHILS % 0.2 % (0.0-2.0); EOSINOPHILS % 0.2 % (0.0-5.0); HEMATOCRIT. 35.9 % (36.0-48.0); HEMOGLOBIN. 11.6 g/dL (12.0-16.0); LYMPHOCYTES % 14.9 % (20.0-50.0); MEAN CORPUSCULAR HEMOGLOBIN 26.8 pg (28.0-32.0); MEAN CORPUSCULAR HGB CONC 32.3 g/dL (31.0-37.0); MEAN PLATELET VOLUME 10.1 fl (7.4-10.4); MONOCYTES % 3.5 % (2.0-8.0); NEUTROPHILS % 81.2 % (40.0-76.0); PLATELET 154 x1000/uL (130-400); RED BLOOD CELL COUNT 4.33 mill/uL (4.2-5.4); RED CELL DISTRIBUTION WIDTH 17.8 % (11.6-14.6); WHITE BLOOD COUNT 7.7 x1000/uL (4.5-11.0)
[2023-08-03 05:30] LABS: CALCIUM 7.8 mg/dL (8.7-10.4); CARBON DIOXIDE 19 mEq/L (21-32); CHLORIDE 111 mEq/L (98-107); CREATININE 0.8 mg/dL (0.6-1.0); GLUCOSE 258 mg/dL (70-105); POTASSIUM 4.2 mEq/L (3.5-5.1); SODIUM 141 mEq/L (136-145); UREA NITROGEN BLOOD 14 mg/dL (9-23)
[2023-08-03] MEDS ORDERED: DEXTROSE 50% WATER 50ML SYRINGE IV PRN (07:45)
[2023-08-03] MEDS: ASPIRIN 81MG TABLET PO SCH (08:39)
[2023-08-03 10:12] LABS: BG BASE EXCESS -1.4 mmol/L (-2.0-2.0); BG CARBOXYHEMOGLOBIN 0.3 % (0.5-1.5); BG DEOXYHEMOGLOBIN 1.3 % (0.0-5.0); BG FRACTION INSPIRED OXYGEN 50; BG HCO3 ACT 23.1 mmol/L (22.0-26.0); BG METHEMOGLOBIN 0.4 % (0.0-1.5); BG OXYGEN SATURATION 98.7 % (92.0-98.5); BG PCO2 38.1 mmHg (35.0-45.0); BG PH 7.401 (7.350-7.450); BG PO2 197.1 mmHg (75.0-100.0); BG SAMPLE SITE RIGHT BRACHIAL; BG VENT MODE VENT - AC
[2023-08-03] MEDS: BLOOD SUGAR DIAGNOSTIC STRIP TEST SCH (11:36)
[2023-08-03] MEDS: INSULIN LISPRO 100 UNITS/ML SUBCUT SCH (11:41)
[2023-08-03 17:03] LABS: BG BASE EXCESS -0.5 mmol/L (-2.0-2.0); BG CARBOXYHEMOGLOBIN 0.3 % (0.5-1.5); BG DEOXYHEMOGLOBIN 7.2 % (0.0-5.0); BG FRACTION INSPIRED OXYGEN 32; BG METHEMOGLOBIN 0.3 % (0.0-1.5); BG OXYGEN SATURATION 92.8 % (92.0-98.5); BG OXYHEMOGLOBIN 92.2 % (94.0-97.0); BG PCO2 34.2 mmHg (35.0-45.0); BG PH 7.446 (7.350-7.450); BG PO2 62.4 mmHg (75.0-100.0); BG SAMPLE SITE RIGHT BRACHIAL; BG VENT MODE NASAL CANNULA
[2023-08-04] VITALS (42 sets, daily range): BP systolic 113–159; BP diastolic 53–92; PULSE 72–101; RESP 16–24; TEMP 97.8–98.4; O2SAT 96–97
[2023-08-04 05:18] LABS: BASOPHILS % 0.1 % (0.0-2.0); HEMATOCRIT. 31.6 % (36.0-48.0); HEMOGLOBIN. 10.5 g/dL (12.0-16.0); LYMPHOCYTES % 12.3 % (20.0-50.0); MEAN CORPUSCULAR HEMOGLOBIN 26.7 pg (28.0-32.0); MEAN CORPUSCULAR HGB CONC 33.2 g/dL (31.0-37.0); MEAN CORPUSCULAR VOLUME 80.5 fL (81.0-99.0); MEAN PLATELET VOLUME 9.7 fl (7.4-10.4); MONOCYTES % 7.1 % (2.0-8.0); NEUTROPHILS % 80.5 % (40.0-76.0); PLATELET 173 x1000/uL (130-400); RED BLOOD CELL COUNT 3.93 mill/uL (4.2-5.4); RED CELL DISTRIBUTION WIDTH 17.3 % (11.6-14.6); WHITE BLOOD COUNT 7.3 x1000/uL (4.5-11.0)
[2023-08-04 05:29] LABS: CALCIUM 8.1 mg/dL (8.7-10.4); CARBON DIOXIDE 25 mEq/L (21-32); CHLORIDE 110 mEq/L (98-107); CREATININE 0.8 mg/dL (0.6-1.0); GLUCOSE 312 mg/dL (70-105); POTASSIUM 3.8 mEq/L (3.5-5.1); SODIUM 143 mEq/L (136-145); UREA NITROGEN BLOOD 22 mg/dL (9-23)
[2023-08-04 10:18] LABS: BG BASE EXCESS -1.5 mmol/L (-2.0-2.0); BG CARBOXYHEMOGLOBIN 0.3 % (0.5-1.5); BG DEOXYHEMOGLOBIN 5.1 % (0.0-5.0); BG FRACTION INSPIRED OXYGEN 26; BG HCO3 ACT 22.1 mmol/L (22.0-26.0); BG METHEMOGLOBIN 0.3 % (0.0-1.5); BG OXYGEN SATURATION 94.9 % (92.0-98.5); BG OXYHEMOGLOBIN 94.3 % (94.0-97.0); BG PCO2 33.3 mmHg (35.0-45.0); BG PH 7.439 (7.350-7.450); BG PO2 71.9 mmHg (75.0-100.0); BG SAMPLE SITE RIGHT BRACHIAL; BG TOTAL HEMOGLOBIN 12.2 g/dL (12.0-18.0); BG VENT MODE NASAL CANNULA
[2023-08-04] MEDS ORDERED: IOHEXOL-350 100 ML BOTTLE ONE (10:24)
[2023-08-04] MEDS: VANCOMYCIN 750MG/150ML IV SCH (13:58)
[2023-08-04] MEDS: BLOOD SUGAR DIAGNOSTIC STRIP TEST SCH (16:10)
[2023-08-04] MEDS: INSULIN LISPRO 100 UNITS/ML SUBCUT SCH (16:14)
[2023-08-04] MEDS ORDERED: BLOOD SUGAR DIAGNOSTIC STRIP TEST SCH (16:30)
[2023-08-04] MEDS: INSULIN GLARGINE 100 UNITS/ML SUBCUT SCH (23:22)
[2023-08-05] VITALS (10 sets, daily range): BP systolic 130–172; BP diastolic 58–73; PULSE 71–94; RESP 16–20; TEMP 98.3–99.5; O2SAT 95–97
[2023-08-05 12:36] LABS: BG BASE EXCESS -0.2 mmol/L (-2.0-2.0); BG CARBOXYHEMOGLOBIN 0.3 % (0.5-1.5); BG DEOXYHEMOGLOBIN 5.2 % (0.0-5.0); BG FRACTION INSPIRED OXYGEN 21; BG HCO3 ACT 21.8 mmol/L (22.0-26.0); BG METHEMOGLOBIN 0.3 % (0.0-1.5); BG OXYGEN SATURATION 94.8 % (92.0-98.5); BG OXYHEMOGLOBIN 94.2 % (94.0-97.0); BG PCO2 27.9 mmHg (35.0-45.0); BG PH 7.511 (7.350-7.450); BG PO2 70.9 mmHg (75.0-100.0); BG SAMPLE SITE RIGHT RADIAL; BG TOTAL HEMOGLOBIN 11.8 g/dL (12.0-18.0); BG VENT MODE ROOM AIR
[2023-08-05] MEDS: INSULIN LISPRO 100 UNITS/ML SUBCUT SCH (12:38)
[2023-08-05 16:39] LABS: HEMATOCRIT. 32.5 % (36.0-48.0); HEMOGLOBIN. 10.8 g/dL (12.0-16.0); MEAN CORPUSCULAR HEMOGLOBIN 26.4 pg (28.0-32.0); MEAN CORPUSCULAR HGB CONC 33.2 g/dL (31.0-37.0); MEAN CORPUSCULAR VOLUME 79.5 fL (81.0-99.0); MEAN PLATELET VOLUME 9.5 fl (7.4-10.4); PLATELET 214 x1000/uL (130-400); RED BLOOD CELL COUNT 4.08 mill/uL (4.2-5.4); RED CELL DISTRIBUTION WIDTH 16.6 % (11.6-14.6); WHITE BLOOD COUNT 10.9 x1000/uL (4.5-11.0)
[2023-08-05 16:43] LABS: DIFFERENTIAL COMMENT 1
[2023-08-05 17:03] LABS: CALCIUM 8.4 mg/dL (8.7-10.4); CARBON DIOXIDE 23 mEq/L (21-32); CHLORIDE 108 mEq/L (98-107); CREATININE 0.8 mg/dL (0.6-1.0); GLUCOSE 287 mg/dL (70-105); POTASSIUM 3.7 mEq/L (3.5-5.1); SODIUM 140 mEq/L (136-145); UREA NITROGEN BLOOD 22 mg/dL (9-23)
[2023-08-05 17:30] LABS: MICROCYTOSIS 1+; PLATELET ESTIMATE NORMAL
[2023-08-05] MEDS: CLONIDINE 0.2MG TABLET PO PRN (21:05)
[2023-08-05] MEDS: METHYLPREDNISOLONE SOD SUCC 40MG/ML (ACT-O-VIAL) IV SCH (21:52)
[2023-08-06] VITALS (9 sets, daily range): BP systolic 124–159; BP diastolic 59–68; PULSE 70–84; RESP 18–21; TEMP 97.5–99.7; O2SAT 95–97
[2023-08-06 07:32] LABS: HEMATOCRIT. 31.7 % (36.0-48.0); HEMOGLOBIN. 10.5 g/dL (12.0-16.0); MEAN CORPUSCULAR HEMOGLOBIN 26.4 pg (28.0-32.0); MEAN CORPUSCULAR HGB CONC 32.9 g/dL (31.0-37.0); MEAN CORPUSCULAR VOLUME 80.3 fL (81.0-99.0); MEAN PLATELET VOLUME 9.3 fl (7.4-10.4); PLATELET 199 x1000/uL (130-400); RED BLOOD CELL COUNT 3.95 mill/uL (4.2-5.4); RED CELL DISTRIBUTION WIDTH 16.4 % (11.6-14.6); WHITE BLOOD COUNT 8.5 x1000/uL (4.5-11.0)
[2023-08-06 07:45] LABS: DIFFERENTIAL COMMENT 1
[2023-08-06 07:51] LABS: CALCIUM 7.9 mg/dL (8.7-10.4); CARBON DIOXIDE 24 mEq/L (21-32); CHLORIDE 109 mEq/L (98-107); CREATININE 0.7 mg/dL (0.6-1.0); GLUCOSE 330 mg/dL (70-105); POTASSIUM 4.2 mEq/L (3.5-5.1); SODIUM 140 mEq/L (136-145); UREA NITROGEN BLOOD 18 mg/dL (9-23)
[2023-08-06 16:29] LABS: NUCLEATED RED BLOOD CELLS 3 /100 WBC; PLATELET ESTIMATE NORMAL
[2023-08-06] MEDS ORDERED: PRED5TAB MT (16:44)
[2023-08-06] MEDS ORDERED: AMLO5TAB88 MT (16:44)
[2023-08-06] MEDS ORDERED: ASPI-1497 MT (16:44)
[2023-08-06] MEDS ORDERED: PRED10TA MT (16:44)
[2023-08-06] MEDS ORDERED: LEVO-65 MT (16:44)
[2023-08-06] MEDS ORDERED: P20 MT (16:44)
[2023-08-06] MEDS ORDERED: INSULIN GLARGINE 100 UNITS/ML SUBCUT SCH (22:00)
[2023-08-07] MEDS ORDERED: METHYLPREDNISOLONE SOD SUCC 40MG/ML (ACT-O-VIAL) IV SCH (09:00)
== END 2023-08-06 18:10 | disposition home or self-care (01) | DRG 871 ==
LOC: ER 21:23 → MICUSO 08-01 00:35 → EDBEDREQTM 08-01 00:39 → EDBEDREQ 08-01 00:39 → 7WST 08-04 17:56
PROVIDERS: ADMIT Internal Medicine; ATTEND Internal Medicine
PROC: 5A1945Z Respiratory Ventilation, 24-96 Consecutive Hours (ICD-10-PCS; principal; 2023-07-31)
PROC: 0BH17EZ Insertion of Endotracheal Airway into Trachea, Via Natural or Artificial Opening (ICD-10-PCS; 2023-07-31)
DX: A41.9 Sepsis, unspecified organism (principal); G93.41 Metabolic encephalopathy; J96.02 Acute respiratory failure with hypercapnia; I21.4 Non-ST elevation (NSTEMI) myocardial infarction; J18.9 Pneumonia, unspecified organism; N17.9 Acute kidney failure, unspecified; J45.901 Unspecified asthma with (acute) exacerbation; R65.20 Severe sepsis without septic shock; E11.65 Type 2 diabetes mellitus with hyperglycemia; I10 Essential (primary) hypertension; Z20.822 Contact with and (suspected) exposure to COVID-19; T38.0X5A Adverse effect of glucocorticoids and synthetic analogues, initial encounter; Y92.89 Other specified places as the place of occurrence of the external cause
CPT/HCPCS: 31500; 36415; 36600; 70496; 70498; 71045; 71275; 80048; 80053; 80202; 82375; 82550; 82553; 82805; 82962; 83605; 83735; 83880; 84100; 84145; 84484; 85025; 85379; 87070; 87426; 87804; 93005; 93306; 93970; 94002; 94003; 94618; 94640; 97162; 99285; C1893; C9113; J1650; J1815; J1953; J2270; J2543; J2704; J2920; J2930; J3010; J3370; J3475; J3490; J7030; J7050; J7626; Q9967